=== PATIENT | male | born 1970 | race Caucasian/White ===

== ENCOUNTER 2016-09-29 17:33 | Emergency (ER) | payer OTHER | END 2016-09-29 20:12 | disposition home or self-care (01) | LOC: ER 17:33 | DX: S60.812A Abrasion of left wrist, initial encounter (principal); S61.532A Puncture wound without foreign body of left wrist, initial encounter; W45.8XXA Other foreign body or object entering through skin, initial encounter; Y93.89 Activity, other specified; F17.210 Nicotine dependence, cigarettes, uncomplicated; Z79.899 Other long term (current) drug therapy; Z79.1 Long term (current) use of non-steroidal anti-inflammatories (NSAID) | CPT/HCPCS: 73110; 99283 ==